=== PATIENT | female | born 1965 | race Caucasian/White ===

== ENCOUNTER 2017-11-11 11:12 | Emergency (ER) | payer MEDICAID ==
[~2017-11-11] VITALS: Ht 162.6 cm; Wt 60.0 kg
[2017-11-11 11:45] VITALS: BP 118/77
== END 2017-11-11 12:00 | disposition left against medical advice (07) ==
LOC: ER 11:20
DX: S09.8XXA Other specified injuries of head, initial encounter (principal); Y04.0XXA Assault by unarmed brawl or fight, initial encounter; Y93.89 Activity, other specified; Y92.488 Other paved roadways as the place of occurrence of the external cause

== ENCOUNTER 2019-03-24 05:25 | Emergency (ER) | payer MEDICAID ==
[~2019-03-24] VITALS: Ht 165.1 cm; Wt 72.0 kg
[2019-03-24 05:33] VITALS: BP 136/71
== END 2019-03-24 06:19 | disposition left against medical advice (07) ==
LOC: ER 05:36
DX: F10.129 Alcohol abuse with intoxication, unspecified (principal); Z53.21 Procedure and treatment not carried out due to patient leaving prior to being seen by health care provider